=== PATIENT | female | born 1975 | race Caucasian/White ===

== ENCOUNTER → 2023-06-30 | Emergency (ER) | payer BC ==
[~2023-06-30] MED LIST: KETOROLAC 30 MG/ML INJ ONE; NA CHLORIDE 0.9% 1,000 ML ONE; ONDANSETRON 4 MG/2 ML VIAL ONE
[2023-06-30 08:11] LABS: Absolute Lymphocytes (CBC) 2.7 K/uL (0.7-4.9); Hematocrit 40.7 % (36.0-45.0); Lymphocytes % 47.9 % (15.3-44.8); MCV 93.2 fL (80-100); MPV 7.8 fL (7.6-11.3); Platelets 261 thou/uL (152-406); RBC Red Blood Cell Count 4.37 M/uL (3.86-4.86)
[2023-06-30 08:28] LABS: Bilirubin Total 0.7 mg/dL (0.2-1.0); Protein, Total 7.7 g/dL (6.4-8.2)
--- NOTE | 2023-06-30 09:15 | RAD REPORT ---
EXAM DESCRIPTION: CT - Chest Abdomen Pelvis W Cont - 06/30/2023 8:45 am CLINICAL HISTORY: back and abdomen pain COMPARISON: No comparisons TECHNIQUE: Thin axial CT images of the chest, abdomen, and pelvis, performed following intravenous a dministration of 100mL Isovue-300. Multiplanar reformats were generated and reviewed. All CT scans are performed using dose optimization technique as appropriate and may include automated exposure control or mA/KV adjustment according to patient size. FINDINGS: The lungs are clear.No pleural or pericardial effusion.No intrathoracic adenopathy. The liver, spleen, pancreas, adrenal glands and kidneys are within normal limits. Gallbladder is unr emarkable. No bowel obstruction, free air, free fluid or abscess. Normal appendix. No pathologic lymphadenopath y in the abdomen or pelvis. Bladder is suboptimally distended limiting evaluation. No worrisome osseous finding. Small posterior disc bulges noted at L2-3 and L4-5, without significant canal stenosis. These are not well evaluated. IMPRESSION: No acute findings in the chest, abdomen, or pelvis. Given the patient's symptoms, if there is concern for radiculopathy, MRI of the thoracic or lumbar sp ine would be helpful for further assessment on an outpatient basis, depending on the levels of involv ement.
[2023-06-30 09:32] LABS: Urine Bacteria <20 /HPF (<20); Urine Bilirubin NEGATIVE (Negative); Urine Blood Negative (Negative); Urine Clarity Clear (Clear); Urine Color Light-Yellow (Yellow); Urine Glucose NEGATIVE (Negative); Urine Protein NEGATIVE (Negative); Urine RBC <5 /HPF (None Seen); Urine Urobilinogen Normal (Normal); Urine pH 6.5 (5.0-7.0)
[2023-06-30 09:38] LABS: Specific Gravity > 1.030 (1.005-1.030)
--- NOTE | 2023-06-30 09:54 | ER ---
Nurse's Notes [facility] Name: Renate Dial Age: 48 yrs Sex: Female : 1975 Arrival Date: 06/30/2023 Time: 07:43 Bed 6 Private MD: Diagnosis: Back Pain Presentation: 06/30 07:55 Chief complaint: Patient states: Mid back pain for 6-8 months. Random abdominal ll1 cramping with nausea. No fevers. Coronavirus screen: Client denies travel out of the [place] in the last 14 days. muscle pain, nausea, At this time, the client does not indicate any symptoms associated with coronavirus-19. Ebola Screen: Patient denies travel to an Ebola-affected area in the 21 days before illness onset. Initial Sepsis Screen: Does the patient meet any 2 criteria? No. Patient's initial sepsis screen is negative. Does the patient have a suspected source of infection? No. Patient's initial sepsis screen is negative. Risk Assessment: Do you want to hurt yourself or someone else? Patient reports no desire to harm self or others. Onset of symptoms was December 02, 2022. 07:55 Method Of Arrival: Ambulatory ll1 07:55 Acuity: MIGUE 3 ll1 Triage Assessment: 07:57 General: Appears in no apparent distress. Behavior is calm, cooperative, appropriate ll1 for age. Pain: Complains of pain in mid back Quality of pain is described as aching. GI: Reports cramping, nausea. Musculoskeletal: Circulation, motion, and sensation intact. Capillary refill < 3 seconds, Reports pain in mid back. 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 - Social history:: Smoking status: Patient denies any tobacco usage or history of. Screenin:06 [facility] ED Fall Risk Assessment (Adult) Score/Fall Risk Level 0 - 2 = Low Risk ll1 Oriented to surroundings, Maintained a safe environment, Educated pt \T\ family on fall prevention, incl call for assistance when getting out of bed, Hourly rounding (assess needs \T\ fall precautionary measures) done. Abuse screen: Denies threats or abuse. Nutritional screening: No deficits noted. Tuberculosis screening: No symptoms or risk factors identified. Assessment: 08:05 Reassessment: No changes from previously documented assessment. Patient and/or family ll1 updated on plan of care and expected duration. Pain level reassessed. Dr. Cote at . 08:18 Reassessment: No changes from previously documented assessment. Patient and/or family ll1 updated on plan of care and expected duration. Pain level reassessed. Patient is alert, oriented x 3, equal unlabored respirations, skin warm/dry/pink. 08:39 Reassessment: No changes from previously documented assessment. To CT via wheelchair. ll1 09:02 Reassessment: No changes from previously documented assessment. gait steady. ll1 10:00 Reassessment: No changes from previously documented assessment. Patient and/or family ll1 updated on plan of care and expected duration. Pain level reassessed. Patient is alert, oriented x 3, equal unlabored respirations, skin warm/dry/pink. Patient states feeling better. 10:01 GI: Bowel sounds present X 4 quads. Abd is soft Abd is non tender. ll1 Vital Signs: 07:55 BP 130 / 90; Pulse 78; Resp 17; Temp 98; Pulse Ox 96% on R/A; Weight 88.45 kg; Height 5 ll1 ft. 6 in. ; Pain 7/10; 08:15 BP 130 / 88; Pulse 78; Resp 17; Pulse Ox 98% on R/A; Pain 7/10; ll1 08:35 BP 118 / 83; ll1 10:00 BP 135 / 87; Pulse 66; Resp 16; Pulse Ox 99% on R/A; Pain 4/10; ll1 07:55 Body Mass Index 31.47 (88.45 kg, 167.64 cm) ll1 07:55 Pain Scale: Adult ll1 08:15 Pain Scale: Adult ll1 10:00 Pain Scale: Adult ll1 ED Course: 07:45 Patient arrived in ED. mr 07:51 Ashok Cote MD is Attending Physician. kdr 07:54 Samantha Watson RN is Primary Nurse. ll1 07:54 Arm band placed on Patient placed in an exam room, on a stretcher. ll1 07:57 Triage completed. ll1 08:00 Inserted saline lock: 22 gauge in left antecubital area, using aseptic technique. Blood ll1 collected. 08:06 Patient has correct armband on for positive identification. Call light in reach. ll1 Provided Education on: ER procedures and process. Client placed on continuous cardiac and pulse oximetry monitoring. NIBP monitoring applied. 08:47 CT Chest, Abdomen, Pelvis - W/Contrast In Process Unspecified. EDMS 09:23 Urinalysis w/ reflexes Sent. ll1 10:00 IV discontinued, intact, bleeding controlled, No redness/swelling at site. Pressure ll1 dressing applied. 10:01 No provider procedures requiring assistance completed. ll1 Administered Medications: 08:17 Drug: Ketorolac IVP 15 mg IVP once Route: IVP; Site: left antecubital; ll1 10:01 Follow up: Response: No adverse reaction; Pain is decreased ll1 08:17 Drug: Ondansetron IVP 4 mg IVP once; over 2 minutes Route: IVP; Site: left antecubital; ll1 10:01 Follow up: Response: No adverse reaction ll1 08:17 Drug: NS 0.9% IV 1000 ml IV at 1 bolus Per protocol; 1000 mL bolus Route: IV; Rate: 1 ll1 bolus; Site: left antecubital; 10:01 Follow up: Response: No adverse reaction; IV Status: Completed infusion; IV Intake: ll1 1000ml Medication: 08:06 VIS not applicable for this client. ll1 Intake: 10:01 IV: 1000ml; Total: 1000ml. ll1 Outcome: 09:53 Discharge ordered by . kdr 10:01 Discharged to home ambulatory, ll1 10:01 Condition: stable 10:01 Discharge instructions given to patient, Instructed on discharge instructions, follow up and referral plans. Demonstrated understanding of instructions, follow-up care, 10:02 Patient left the ED. ll1 Signatures: Dispatcher [employer] EDMS Ashok Cote MD MD kdr Rivera, Mary, Reg Reg mr Samantha Watson, RN RN ll1 Corrections: (The following items were deleted from the chart) 10:00 10:00 BP 135 / 87; Pulse 66bpm; Resp 16bpm; Pulse Ox 99% RA; ll1 ll1
--- NOTE | 2023-06-30 09:54 | EDPHYS ---
Physician Documentation [facility] Name: Renate Dial Age: 48 yrs Sex: Female : 1975 Arrival Date: 06/30/2023 Time: 07:43 Bed 6 Private MD: ED Physician Ashok Cote HPI: 06/30 10:01 This 48 yrs old Female presents to ER via Ambulatory with complaints of Abdominal Pain, kdr Back Pain, Nausea. 10:02 Patient complains of upper back pain in between her scapulas in the midline on her kdr spine. This is been intermittent but ongoing for a number of months. Patient is attempted to get some evaluation with her PCP but is not had a full evaluation as yet. She has had an ultrasound of her gallbladder which did not reveal any particular connection to the back pain. Her back pain does occur in association with transient intermittent and mobile abdominal pain that from time to time is right or left flank. Patient has had kidney stones in the past but states that her current discomfort over the past few months has not been similar to that. Patient is nonacute appearing and is otherwise in her usual state of health.. Onset: The symptoms/episode began/occurred gradually, at an unknown time. Many months. Severity of symptoms: At their worst the symptoms were mild in the emergency department the symptoms are unchanged. The patient has not experienced similar symptoms in the past. The patient has not recently seen a physician. RN PACU: 08:40 LMP N/A - control method, Not ll1 Historical: - Allergies: 07:55 Bactrim; ll1 - PMHx: 07:55 back problems; ll1 - PSHx: 07:55 None; ll1 - Immunization history:: Adult Immunizations up to date. - Social history:: Smoking status: Patient denies any tobacco usage or history of. ROS: 10:02 Constitutional: Negative for fever, chills, and weight loss, Eyes: Negative for injury, kdr pain, redness, and discharge, ENT: Negative for injury, pain, and discharge, Neck: Negative for injury, pain, and swelling, Cardiovascular: Negative for chest pain, palpitations, and edema, Respiratory: Negative for shortness of breath, cough, wheezing, and pleuritic chest pain, : Negative for injury, bleeding, discharge, and swelling, MS/Extremity: Negative for injury and deformity, Skin: Negative for injury, rash, and discoloration, Neuro: Negative for headache, weakness, numbness, tingling, and seizure activity. Psych: Negative for depression, anxiety, suicide ideation, homicidal ideation, and hallucinations, Allergy/Immunology: Negative for hives, rash, and allergies, Endocrine: Negative for neck swelling, polydipsia, polyuria, polyphagia, and marked weight changes, Hematologic/Lymphatic: Negative for swollen nodes, abnormal bleeding, and unusual bruising, 10:02 Abdomen/GI: Positive for abdominal pain, Fleeting and intermittently presenting in different parts of her abdomen. Not consistently in 1 location, Negative for constipation, abdominal cramps, abdominal distension, anorexia, dysphagia, hematemesis, black/tarry stool, rectal pain, rectal bleeding, Exam: 10:02 Constitutional: This is a well developed, well nourished patient who is awake, alert, kdr and in no acute distress. Head/Face: Normocephalic, atraumatic. Eyes: Pupils equal round and reactive to light, extra-ocular motions intact. Lids and lashes normal. Conjunctiva and sclera are non-icteric and not injected. Cornea within normal limits. Periorbital areas with no swelling, redness, or edema. Neck: Trachea midline, no thyromegaly or masses palpated, and no cervical lymphadenopathy. Supple, full range of motion without nuchal rigidity, or vertebral point tenderness. No Meningismus. Chest/axilla: Normal chest wall appearance and motion. Nontender with no deformity. No lesions are appreciated. Cardiovascular: Regular rate and rhythm with a normal S1 and S2. No gallops, murmurs, or rubs. Normal PMI, no JVD. No pulse deficits. Respiratory: Lungs have equal breath sounds bilaterally, clear to auscultation and percussion. No rales, rhonchi or wheezes noted. No increased work of breathing, no retractions or nasal flaring. Abdomen/GI: Soft, non-tender, with normal bowel sounds. No distension or tympany. No guarding or rebound. No evidence of tenderness throughout. Back: No spinal tenderness. No costovertebral tenderness. Full range of motion. Skin: Warm, dry with normal turgor. Normal color with no rashes, no lesions, and no evidence of cellulitis. MS/ Extremity: Pulses equal, no cyanosis. Neurovascular intact. Full, normal range of motion. Neuro: Awake and alert, GCS 15, oriented to person, place, time, and situation. Cranial nerves II-XII grossly intact. Motor strength 5/5 in all extremities. Sensory grossly intact. Cerebellar exam normal. Normal gait. Psych: Awake, alert, with orientation to person, place and time. Behavior, mood, and affect are within normal limits. Vital Signs: 07:55 BP 130 / 90; Pulse 78; Resp 17; Temp 98; Pulse Ox 96% on R/A; Weight 88.45 kg; Height 5 ll1 ft. 6 in. ; Pain 7/10; 08:15 BP 130 / 88; Pulse 78; Resp 17; Pulse Ox 98% on R/A; Pain 7/10; ll1 08:35 BP 118 / 83; ll1 10:00 BP 135 / 87; Pulse 66; Resp 16; Pulse Ox 99% on R/A; Pain 4/10; ll1 07:55 Body Mass Index 31.47 (88.45 kg, 167.64 cm) ll1 07:55 Pain Scale: Adult ll1 08:15 Pain Scale: Adult ll1 10:00 Pain Scale: Adult ll1 MDM: 09:53 Patient medically screened. kdr 10:02 Data reviewed: vital signs, nurses notes, radiologic studies. [facility] 06/30 07:53 Order name: CBC with Diff; Complete Time: 08:58 [facility] 06/30 07:53 Order name: CMP; Complete Time: 08:58 [facility] 06/30 07:53 Order name: Lipase; Complete Time: 08:58 [facility] 06/30 07:53 Order name: Urinalysis w/ reflexes; Complete Time: 09:46 [facility] 06/30 08:08 Order name: CT Chest, Abdomen, Pelvis - W/Contrast; Complete Time: 09:22 [facility] 06/30 07:53 Order name: IV Saline Lock; Complete Time: 07:58 [facility] 06/30 07:53 Order name: Labs collected and sent; Complete Time: 07:58 kdr Administered Medications: 08:17 Drug: Ketorolac IVP 15 mg IVP once Route: IVP; Site: left antecubital; ll1 10:01 Follow up: Response: No adverse reaction; Pain is decreased ll1 08:17 Drug: Ondansetron IVP 4 mg IVP once; over 2 minutes Route: IVP; Site: left antecubital; ll1 10:01 Follow up: Response: No adverse reaction ll1 08:17 Drug: NS 0.9% IV 1000 ml IV at 1 bolus Per protocol; 1000 mL bolus Route: IV; Rate: 1 ll1 bolus; Site: left antecubital; 10:01 Follow up: Response: No adverse reaction; IV Status: Completed infusion; IV Intake: ll1 1000ml Disposition Summary: 06/30/23 09:53 Discharge Ordered Notes: Location: Home kdr Problem: new kdr Symptoms: have improved kdr Condition: Stable kdr Diagnosis - Back Pain kdr Followup: kdr - With: Private Physician - When: As needed - Reason: If symptoms return, Further diagnostic work-up, Recheck today's complaints, Continuance of care, Re-evaluation by your physician Discharge Instructions: - Discharge Summary Sheet kdr - Abdominal Pain, Adult, [id number] kdr - Chronic Back Pain, [id number] kdr Forms: - Medication Reconciliation Form kdr - Thank You Letter kdr - Patient Portal Instructions kdr - Leadership Thank You Letter kdr Signatures: Dispatcher [employer] Ashok Sweeney MD MD kdr Samantha Watson RN RN ll1
[2023-06-30 12:08] VITALS: BP 135/87; TEMP 98; O2SAT 99
== END ==
LOC: ER 07:43
DX: M54.9 Dorsalgia, unspecified (principal); R10.9 Unspecified abdominal pain; R11.0 Nausea; Z88.1 Allergy status to other antibiotic agents
CPT/HCPCS: 96361; 85025; 81001; 36415; 83690; 80053; 71260; 74177; 96375; 96374; 99284; Q9967; J2405; J7030